=== PATIENT | male | born 1970 | race Caucasian/White ===

== ENCOUNTER 2016-12-03 15:49 | Emergency (ER) | payer OTHER, MEDICAID ==
[~2016-12-03] VITALS: Ht 175.3 cm; Wt 81.6 kg
[2016-12-03 15:49] VITALS: BP_SYST 115
[~2016-12-03 15:49] MED LIST: ALPR2TAB2 PO; APIX5TAB PO; ARIP20TA5 PO; HYDR2TAB34 PO; LITH300T15 PO
[2016-12-03 16:10] VITALS: BP_SYST 132
[2016-12-03 16:22] LABS: BASOPHILS % (AUTO) 0.7 % (0.0-2.0); EOSINOPHILS % (AUTO) 0.7 % (0.0-4.0); HEMATOCRIT 36.6 % (36-54); HEMOGLOBIN 11.8 g/dL (14.0-18.0); LYMPHOCYTES # (AUTO) 1.4 K/uL (1.0-5.5); MEAN CORPUSCULAR HEMOGLOBIN 25 pg (27-31); MEAN CORPUSCULAR HGB CONC 32 % (32-36); MEAN CORPUSCULAR VOLUME 76 fL (79.0-98.0); MONOCYTES # (AUTO) 0.8 K/uL (0.0-1.0); MONOCYTES % (AUTO) 14.1 % (1.7-9.3); NEUTROPHILS # (AUTO) 3.8 K/uL (1.8-7.7); NEUTROPHILS % (AUTO) 60.5 % (40.0-70.0); PLATELET COUNT (AUTO) 369 K/uL (130-430); RED CELL DISTRIBUTION WIDTH 18.5 % (9.0-15.0)
[2016-12-03 16:40] LABS: ANION GAP 18 (5-15); CALCIUM 9.5 mg/dL (8.4-11.0); CHLORIDE 104 mmol/L (98-107); CREATININE 1.51 mg/dL (0.55-1.30); GLUCOSE 175 mg/dL (70-99); POTASSIUM 3.5 mmol/L (3.5-5.1); SODIUM SERUM 140 mmol/L (136-145); UREA NITROGEN, BLOOD 26 mg/dL (8-21)
[2016-12-03 16:42] LABS: GFR AFRICAN AMERICAN 65 mL/min (>90)
[2016-12-03 16:44] LABS: PROTHROMBIN TIME 10.9 SECS (9.5-12.5)
[2016-12-03 16:45] LABS: ALANINE AMINOTRANSFERASE 34 U/L (12-78); ALBUMIN 4.5 g/dL (3.4-4.8); ASPARTATE AMINOTRANSFERASE 23 U/L (10-37); TOTAL BILIRUBIN 0.5 mg/dL (0.0-1.0); TOTAL PROTEIN, SERUM 8.2 g/dL (6.4-8.3)
[2016-12-03 17:12] LABS: ACETAMINOPHEN < 1 ug/mL (1-30)
[2016-12-03 17:13] LABS: ALCOHOL, BLOOD < 3 mg/dL (<10)
== END 2016-12-03 17:52 | disposition left against medical advice (07) ==
LOC: SED 15:49
DX: R56.9 Unspecified convulsions (principal); E86.0 Dehydration; E11.9 Type 2 diabetes mellitus without complications; F31.9 Bipolar disorder, unspecified; Z88.5 Allergy status to narcotic agent; Z53.20 Procedure and treatment not carried out because of patient's decision for unspecified reasons
CPT/HCPCS: 36415; 70450; 71010; 80053; 84484; 85025; 85610; 85730; 93005; 99285; G0480; G0482

== ENCOUNTER 2021-09-24 14:10 | Emergency (ER) | payer OTHER, MEDICAID ==
[~2021-09-24] VITALS: Ht 175.3 cm; Wt 68.0 kg
[~2021-09-24 14:10] MED LIST changes: +ARIP20TA4 PO; -ARIP20TA5 PO; +LITH300T PO; -LITH300T15 PO
--- NOTE | 2021-09-24 14:15 | NUR ---
Pt triaged and placed in rm 7 via wheelchair.
--- NOTE | 2021-09-24 14:18 | NUR ---
Pt awake, alert and oriented x 3. Reporting graeme foot pain and blisters since yesterday. Denies trauma or excessive walking. Only PMH sz. Blister to L foot popped on it's own per patient; R foot blister remains intact. Awaiting MD medeiros.
[2021-09-24 14:29] VITALS: BP_SYST 119
--- NOTE | 2021-09-24 14:50 | NUR ---
Dr Bingham to bedside to assess patient
[2021-09-24] MEDS ORDERED: HYDROcodone/ACETAMIN 5-325 MG TAB (NORCO/ VICODIN) PO ONE (15:00)
[2021-09-24] MEDS ORDERED: BACITRACIN/POLYMYXIN B SULFATE 30 GM TOPICAL OINT. TP ONE (15:00)
[2021-09-24] MEDS ORDERED: BACITRACIN 1 GM OINT TP ONE (15:04)
[2021-09-24] MEDS ORDERED: BACI15OI13 TP (15:20)
--- NOTE | 2021-09-24 15:40 | NUR ---
Patient given written and verbal discharge instructions and verbalizes understanding. ER MD discussed with patient the results and treatment provided. Patient in stable condition. ID arm band removed. Rx of Bacitracin given. Patient educated on pain management and to follow up with PMD. Opportunity for questions provided and answered. Medication side effect fact sheet provided.
[2021-09-24 15:43] VITALS: BP_SYST 115
== END 2021-09-24 15:43 | disposition home or self-care (01) ==
LOC: SED 14:10
DX: S90.821A Blister (nonthermal), right foot, initial encounter (principal); S90.822A Blister (nonthermal), left foot, initial encounter; J44.9 Chronic obstructive pulmonary disease, unspecified; Z88.5 Allergy status to narcotic agent; Z79.899 Other long term (current) drug therapy; X58.XXXA Exposure to other specified factors, initial encounter; Y93.89 Activity, other specified; Y92.89 Other specified places as the place of occurrence of the external cause; Y99.8 Other external cause status
CPT/HCPCS: 99283